=== PATIENT | male | born 1945 | race African-American/Black ===

== ENCOUNTER 2022-02-02 12:10 | Emergency (ER) | payer MEDICARE ==
[~2022-02-02] VITALS: Ht 188 cm; Wt 105.0 kg
[2022-02-02 12:26] VITALS: BP 165/82
[2022-02-02] MEDS ORDERED: ACETAMINOPHEN 325MG TABLET PO ONE (12:30)
[2022-02-02] MEDS ORDERED: TOPUD MT (14:54)
== END 2022-02-02 15:26 | disposition home or self-care (01) ==
LOC: ER 12:10
DX: S82.831A Other fracture of upper and lower end of right fibula, initial encounter for closed fracture (principal); W01.0XXA Fall on same level from slipping, tripping and stumbling without subsequent striking against object, initial encounter; Y93.89 Activity, other specified; Y92.89 Other specified places as the place of occurrence of the external cause; Y99.8 Other external cause status; E11.9 Type 2 diabetes mellitus without complications; I10 Essential (primary) hypertension; M25.571 Pain in right ankle and joints of right foot
CPT/HCPCS: 29515; 73590; 73610; 73630; 99284